=== PATIENT | male | born 1965 | race Caucasian/White ===

== ENCOUNTER 2018-03-12 12:29 | Emergency (ER) | payer BC, OTHER ==
[2018-03-12] MEDS ORDERED: NA CHLORIDE 0.9% 1,000 ML ONE (15:04)
[2018-03-12 15:11] LABS: Absolute Lymphocytes (CBC) 1.7 K/uL (0.7-4.9); Absolute Monocytes 0.7 K/uL (0.1-1.3); Absolute Neutrophil 4.2 K/uL (1.8-8.0); Basophils % 0.3 % (0-1.3); Eosinophils % 0.2 % (0-4.4); Hematocrit 43.6 % (39.6-49.0); Lymphocytes % 25.9 % (15.3-44.8); MPV 8.4 fL (7.6-11.3); Monocytes % 10.4 % (3.3-12.3)
--- NOTE | 2018-03-12 15:14 | RAD REPORT ---
EXAM DESCRIPTION: RAD - Chest Single View - 03/12/2018 3:08 pm CLINICAL HISTORY: ABDOMINAL DISTENTION Chest pain. COMPARISON: No comparisons FINDINGS: Portable technique limits examination quality. The lungs are grossly clear. The heart is normal in size. No displaced fractures. IMPRESSION: No acute intrathoracic process suspected.
[2018-03-12 15:27] LABS: Albumin 3.8 g/dL (3.4-5.0); Bilirubin Direct 0.2 mg/dL (0-0.2); Bilirubin Total 0.7 mg/dL (0.2-1.0); Potassium 4.1 mmol/L (3.5-5.1); Protein, Total 7.4 g/dL (6.4-8.2)
--- NOTE | 2018-03-12 16:55 | RAD REPORT ---
EXAM DESCRIPTION: CTAbdomen Pelvis W Contrast - 03/12/2018 4:39 pm CLINICAL HISTORY: Abdominal pain. ABD PAIN COMPARISON: No comparisons TECHNIQUE: Biphasic CT imaging of the abdomen and pelvis was performed with 100 ml non-ionic IV cont rast. All CT scans are performed using dose optimization technique as appropriate and may include automated exposure control or mA/KV adjustment according to patient size. FINDINGS: The lung bases are clear. The liver, spleen, pancreas, adrenal glands and right kidney are within normal limits. 3.2 x 3.0 cm s olid-appearing mass superior left kidney. No bowel obstruction, free air, free fluid or abscess. There are several thickened small bowel loops in the central anterior abdomen noted. No pneumatosis is seen. Sigmoid diverticulosis without diverti culitis. The appendix is normal. No evidence of significant lymphadenopathy. No suspicious bony findings. Small fat containing inguinal hernias. IMPRESSION: Multiple thickened small bowel loops are present in the anterior abdomen. This appears t o predominantly involve the more distal small bowel loops such as the ileum. Differential considerati ons would include infectious/inflammatory enteritis or inflammatory bowel disease. 3.2 x 3.0 cm solid-appearing lesion in the superior left kidney may represent a solid renal mass (suc h as renal cell carcinoma) or a complex cystic lesion. Recommend MR kidneys with gadolinium contrast for further assessment.
--- NOTE | 2018-03-12 17:36 | EDPHYS ---
Physician Documentation [facility] Name: Kimani Connolly Age: 52 yrs Sex: Male : 1965 Arrival Date: 03/12/2018 Time: 12:34 Bed 26 Private MD: ED Physician Dale Hull HPI: 03/12 14:01 This 52 yrs old Male presents to ER via Ambulatory with complaints of rh1 Abdominal Pain. 14:01 The patient presents with abdominal pain in the epigastric area, that is diffuse, rh1 abdominal distention that is diffuse. Onset: The symptoms/episode began/occurred 2 week(s) ago. The symptoms do not radiate. Associated signs and symptoms: Pertinent positives: constipation, diarrhea, nausea, Pertinent negatives: blood in stools, chest pain, dysuria, fever, headache, hematuria, palpitations, shortness of breath, testicular pain, vomiting. The symptoms are described as intermittent, sharp, waxing/waning. Modifying factors: The symptoms are alleviated by nothing, the symptoms are aggravated by food, greasy foods. Severity of pain: At its worst the pain was moderate in the emergency department the pain is unchanged. The patient has not experienced similar symptoms in the past. The patient has not recently seen a physician. He has had intermittent abdominal pain for the past 2 weeks. His pain was initially at epigastric area, and described as "mild indigestion" and over the past 2 weeks has moved into lower abdomen, and he feels bloated, crampy and has episodes of increased pain that is sharp. He has some increased symptoms with greasy foods, but other episodes of pain do not correlate with eating. He was initially constipated, and but has also had alternating episodes of diarrhea. He denies any urinary symptoms, no fevers. . Historical: - Allergies: 12:54 No Known Allergies; aa5 - Home Meds: 12:54 None [Active]; aa5 - PMHx: 12:54 None; aa5 - PSHx: 12:54 None; aa5 - Immunization history:: Flu vaccine is not up to date. - Social history:: Smoking status: Patient/guardian denies using tobacco, Patient uses alcohol, weekly. 2 - 3 beers, 1 - 2 mixed drinks on the weekends. - Ebola Screening: : No symptoms or risks identified at this time. ROS: 14:01 Constitutional: Negative for fever rh1 14:01 Constitutional: Positive for chills, x 1 episode last week. 14:01 ENT: Negative for difficulty swallowing, difficulty handling secretions. 14:01 Cardiovascular: Negative for chest pain, edema, palpitations. 14:01 Respiratory: Negative for cough, dyspnea on exertion, shortness of breath, wheezing. 14:01 Abdomen/GI: Positive for abdominal pain, nausea, diarrhea, constipation, Negative for black/tarry stool, rectal bleeding. 14:01 Back: Negative for decreased range of motion, pain at rest, pain with movement, radiated pain. 14:01 : Negative for urinary symptoms, urinary frequency, small amounts. 14:01 MS/extremity: Negative for decreased range of motion, pain, paresthesias, swelling, tenderness. 14:01 Skin: Negative for diaphoresis. 14:01 Neuro: Negative for altered mental status, dizziness, numbness, syncope, near syncope, tingling, weakness. Exam: 14:01 Constitutional: This is a well developed, well nourished patient who is awake, alert, rh1 and in no acute distress. Head/Face: Normocephalic, atraumatic. Neck: Trachea midline, and no cervical lymphadenopathy. Supple, full range of motion without nuchal rigidity. No Meningismus. Chest/axilla: Normal chest wall appearance and motion. Nontender with no deformity. No lesions are appreciated. Cardiovascular: Regular rate and rhythm with a normal S1 and S2. No gallops, murmurs, or rubs. No JVD. No pulse deficits. Respiratory: Lungs have equal breath sounds bilaterally, clear to auscultation. No rales, rhonchi or wheezes noted. No increased work of breathing. 14:01 Back: No spinal tenderness. No costovertebral tenderness. Full range of motion. 14:01 Skin: Warm, dry with normal turgor. Normal color with no rashes, no lesions, and no evidence of cellulitis. 14:01 MS/ Extremity: Pulses equal, no cyanosis. Neurovascular intact. Full, normal range of motion. 14:01 ENT: Mouth: is normal, no lip abnormalities, no mucosal abnormalities. 14:01 Abdomen/GI: Inspection: abdomen appears normal, bruising, is not seen, distension, is not seen, Bowel sounds: normal, in all quadrants, active, all quadrants, Palpation: soft, in all quadrants, mild abdominal tenderness, in the umbilical area, right upper quadrant, left upper quadrant and right lower quadrant, moderate abdominal tenderness, in the left lower quadrant, rebound tenderness, is not appreciated, involuntary guarding, is elicited in the left lower quadrant, Indicators: McBurney's point is not tender, Cabral's sign is negative, Rovsing's sign is negative, Liver: no appreciated palpable abnormalities. 14:01 Back: Exam negative for CVA tenderness, ecchymosis 14:01 Neuro: Orientation: is normal, to person, place \\T\\ time. Mentation: is normal, lucid, able to follow commands, Motor: is normal, moves all fours, strength is 5/5 in all extremities, Sensation: is normal, no obvious gross deficits, numbness, is not appreciated, tingling, is not appreciated, Gait: is steady, at a normal pace, without difficulty. Vital Signs: 12:54 BP 134 / 96; Pulse 68; Resp 18 S; Temp 97.8(TE); Pulse Ox 98% on R/A; Weight 87.09 kg aa5 (R); Height 6 ft. 0 in. (182.88 cm) (R); Pain 4/10; 15:10 BP 132 / 92; Pulse 75; Resp 18; Pulse Ox 97% on R/A; aj1 16:12 BP 136 / 88; Pulse 56; Resp 18; Pulse Ox 100% on R/A; aj1 12:54 Body Mass Index 26.04 (87.09 kg, 182.88 cm) aa5 MDM: 14:01 Patient medically screened. [facility] 17:00 Data reviewed: vital signs, nurses notes, lab test result(s), EKG, radiologic studies, rh1 CT scan, plain films, I have discussed the patient's presentation/case with the attending Emergency Department Physician; and as a result, I will discharge patient. Data interpreted: Pulse oximetry: on room air is 100 %. Interpretation: normal. Counseling: I had a detailed discussion with the patient and/or guardian regarding: the historical points, exam findings, and any diagnostic results supporting the discharge/admit diagnosis, lab results, radiology results, the need for outpatient follow up, a chemical process project engineer, a urologist, to return to the emergency department if symptoms worsen or persist or if there are any questions or concerns that arise at home. 17:32 ED course: Discussed renal mass, including differentials, and encouraged follow up with [facility] urology for further evaluation. 03/12 14:37 Order name: Basic Metabolic Panel; Complete Time: 15:[address] [facility] 03/12 14:37 Order name: CBC with Diff; Complete Time: 15:[address] [facility] 03/12 14:37 Order name: Creatinine for Radiology; Complete Time: 15:[address] [facility] 03/12 14:37 Order name: Hepatic Function; Complete Time: 15:[address] [facility] 03/12 14:37 Order name: Lipase; Complete Time: 15:[address] [facility] 03/12 16:05 Order name: Urine Dipstick--Ancillary (enter results) eb 03/12 14:37 Order name: IV Saline Lock; Complete Time: 15:[address] [facility] 03/12 14:37 Order name: Labs collected and sent; Complete Time: 15:[address] [facility] 03/12 14:37 Order name: Urine Dipstick-Ancillary (obtain specimen); Complete Time: 16:[address] [facility] 03/12 14:37 Order name: CT Abd/Pelvis - W/Contrast; Complete Time: 16:[address] [facility] 03/12 14:38 Order name: Chest Single View XRAY; Complete Time: 15:[address] [facility] 03/12 14:38 Order name: EKG - Nurse/Tech; Complete Time: 15:[address] [facility] Administered Medications: 15:02 Drug: NS 0.9% 1000 ml Route: IV; Rate: 1 bolus; Site: right antecubital; mg2 Disposition: 03/13 09:18 Co-signature as Attending Physician, Dale Hull MD I agree with the assessment and lorin plan of care. Disposition: 03/12/18 17:35 Discharged to Home. Impression: Unspecified abdominal pain, renal mass. - Condition is Stable. - Discharge Instructions: Abdominal Pain, Adult, Renal Mass. - Prescriptions for Flagyl 500 mg Oral Tablet - take 1 tablet by ORAL route every 12 hours for 7 days; 14 tablet. Cipro 500 mg Oral Tablet - take 1 tablet by ORAL route every 12 hours for 7 days; 14 tablet. Tramadol 50 mg Oral Tablet - take 1 tablet by ORAL route every 8 hours as needed; 12 tablet. - Medication Reconciliation Form, Thank You Letter, Antibiotic Education, Prescription Opioid Use form. - Follow up: Gavi, Yomi, MD; When: 2 - 3 days; Reason: Further diagnostic work-up, Recheck today's complaints, Continuance of care, Re-evaluation by your physician. Follow up: Mary Milligan MD; When: 2 - 3 days; Reason: Further diagnostic work-up, Recheck today's complaints, Continuance of care. Follow up: Emergency Department; When: As needed; Reason: Fever > 102 F, If symptoms return, Trouble breathing, Worsening of condition. - Problem is new. - Symptoms have improved. Signatures: Dispatcher [employer] EDMS Naty Lopez RN RN aj1 Dale Hull MD MD cha Calderon, Audri RN RN aa5 Janelle Jones NP NETTING INSPECTOR rh1 Clifford Mcgregor RN RN mg2 Corrections: (The following items were deleted from the chart) 03/12 17:46 17:35 03/12/2018 17:35 Discharged to Home. Impression: Unspecified abdominal pain; aj1 renal mass. Condition is Stable. Forms are Medication Reconciliation Form, Thank You Letter, Antibiotic Education, Prescription Opioid Use. Follow up: Yomi Gatica; When: 2 - 3 days; Reason: Further diagnostic work-up, Recheck today's complaints, Continuance of care, Re-evaluation by your physician. Follow up: Mary Milligan; When: 2 - 3 days; Reason: Further diagnostic work-up, Recheck today's complaints, Continuance of care. Follow up: Emergency Department; When: As needed; Reason: Fever > 102 F, If symptoms return, Trouble breathing, Worsening of condition. Problem is new. Symptoms have improved. rh1
--- NOTE | 2018-03-12 17:36 | ER ---
Nurse's Notes [facility] Name: Kimani Connolly Age: 52 yrs Sex: Male : 1965 Arrival Date: 03/12/2018 Time: 12:34 Bed 26 Private MD: Diagnosis: Unspecified abdominal pain;renal mass Presentation: 03/12 12:52 Presenting complaint: Patient states: epigastric pain that began 2 weeks ago. Pt states aa5 "now the pain is constant and it's my whole abdomen now". Pt reports nausea, denies vomiting. Pt states "I had a little bit of diarrhea at first but now I am a little bit constipated". Transition of care: patient was not received from another setting of care. Onset of symptoms was February 2018. Risk Assessment: Do you want to hurt yourself or someone else? Patient reports no desire to harm self or others. Initial Sepsis Screen: Does the patient meet any 2 criteria? No. Patient's initial sepsis screen is negative. Does the patient have a suspected source of infection? No. Patient's initial sepsis screen is negative. Care prior to arrival: None. 12:52 Method Of Arrival: Ambulatory aa5 12:52 Acuity: TITUS 3 aa5 Historical: - Allergies: 12:54 No Known Allergies; aa5 - Home Meds: 12:54 None [Active]; aa5 - PMHx: 12:54 None; aa5 - PSHx: 12:54 None; aa5 - Immunization history:: Flu vaccine is not up to date. - Social history:: Smoking status: Patient/guardian denies using tobacco, Patient uses alcohol, weekly. 2 - 3 beers, 1 - 2 mixed drinks on the weekends. - Ebola Screening: : No symptoms or risks identified at this time. Screenin:00 Abuse screen: Denies threats or abuse. Denies injuries from another. Nutritional aj1 screening: No deficits noted. Tuberculosis screening: No symptoms or risk factors identified. 17:45 Fall Risk None identified. aj1 Assessment: 14:00 General: Appears in no apparent distress. uncomfortable, Behavior is calm, cooperative, aj1 appropriate for age. Pain: Complains of pain in abdomen diffusely Pain does not radiate. Pain currently is 4 out of 10 on a pain scale. Neuro: Level of Consciousness is awake, alert, obeys commands. Cardiovascular: Patient's skin is warm and dry. Respiratory: Airway is patent Respiratory effort is even, unlabored, Respiratory pattern is regular, symmetrical. GI: Abdomen is flat, non-distended, Bowel sounds present X 4 quads. Abd is soft X 4 quads Abdomen is tender to palpation in left upper quadrant Reports nausea, Patient currently denies diarrhea, vomiting. : No signs and/or symptoms were reported regarding the genitourinary system. EENT: No signs and/or symptoms were reported regarding the EENT system. Derm: No signs and/or symptoms reported regarding the dermatologic system. Skin is pink, warm \\T\\ dry. normal. Musculoskeletal: No signs and/or symptoms reported regarding the musculoskeletal system. Circulation, motion, and sensation intact. 15:00 Reassessment: Patient appears in no apparent distress at this time. No changes from [facility] previously documented assessment. Patient and/or family updated on plan of care and expected duration. Pain level reassessed. Patient is alert, oriented x 3, equal unlabored respirations, skin warm/dry/pink. 16:00 Reassessment: Patient appears in no apparent distress at this time. No changes from aj1 previously documented assessment. Patient and/or family updated on plan of care and expected duration. Pain level reassessed. Patient is alert, oriented x 3, equal unlabored respirations, skin warm/dry/pink. 17:08 Reassessment: Patient appears in no apparent distress at this time. No changes from [facility] previously documented assessment. Patient and/or family updated on plan of care and expected duration. Pain level reassessed. Patient is alert, oriented x 3, equal unlabored respirations, skin warm/dry/pink. Vital Signs: 12:54 BP 134 / 96; Pulse 68; Resp 18 S; Temp 97.8(TE); Pulse Ox 98% on R/A; Weight 87.09 kg aa5 (R); Height 6 ft. 0 in. (182.88 cm) (R); Pain 4/10; 15:10 BP 132 / 92; Pulse 75; Resp 18; Pulse Ox 97% on R/A; aj1 16:12 BP 136 / 88; Pulse 56; Resp 18; Pulse Ox 100% on R/A; aj1 12:54 Body Mass Index 26.04 (87.09 kg, 182.88 cm) aa5 ED Course: 12:34 Patient arrived in ED. mr 12:52 Arm band placed on. aa5 12:53 Triage completed. aa5 13:55 Naty Lopez, RICKI is Primary Nurse. aj1 13:55 Janelle Jones NP is PHCP. rh1 13:55 Dale Hull MD is Attending Physician. rh1 14:00 Patient has correct armband on for positive identification. Bed in low position. Call aj1 light in reach. Side rails up X 1. 15:03 No provider procedures requiring assistance completed. Inserted saline lock: 20 gauge mg2 in right antecubital area, using aseptic technique. Blood collected. 15:08 Chest Single View XRAY In Process Unspecified. EDMS 16:40 CT Abd/Pelvis - W/Contrast In Process Unspecified. EDMS 16:40 CT completed. Patient tolerated procedure well. Patient moved back from CT. 17:33 Yomi Gatica MD is Referral Physician. rh1 17:34 Mary Milligan MD is Referral Physician. rh1 17:45 IV discontinued, intact, bleeding controlled, No redness/swelling at site. Pressure aj dressing applied. Administered Medications: 15:02 Drug: NS 0.9% 1000 ml Route: IV; Rate: 1 bolus; Site: right antecubital; mg2 Outcome: 17:35 Discharge ordered by . 1 17:45 Discharged to home ambulatory. aj1 17:45 Condition: good 17:45 Discharge instructions given to patient, Instructed on discharge instructions, follow up and referral plans. medication usage, Demonstrated understanding of instructions, follow-up care, medications, Prescriptions given X 3. 17:46 Patient left the ED. aj Signatures: Dispatcher [employer] EDMO Naty Lopez, RN RN [facility] Christina Aguilar Betty Lavonne Rodriguez RN RN 5 Janelle Jones NP CUSTOMER RELATIONS SPECIALIST [facility] Clifford Mcgregor RN RN mg2
[2018-03-12 20:35] LABS: Urine Blood TRACE (NEG); Urine Glucose NEGATIVE (NEG); Urine Protein NEGATIVE (NEG); Urine Specific Gravity 1.025 (1.005-1.030)
--- NOTE | 2018-03-13 09:26 | EKG ---
Test Date: 2018-03-12 Test Time: 15:09:30 Buckle Gluer: NEY MEASUREMENT RESULTS: Intervals: Rate: 60 KS: 168 QRSD: 88 QT: 430 QTc: 430 [place]: P: 56 KS: 168 QRS: -21 T: 46 INTERPRETIVE STATEMENTS: Normal sinus rhythm Septal infarct, age undetermined Abnormal ECG No previous ECG available for comparison Electronically Signed On 03-13-18 09:25:06 MANAGER GAMES by Grey Sotelo
== END 2018-03-12 17:46 | disposition home or self-care (01) ==
LOC: ER 12:29
DX: N28.9 Disorder of kidney and ureter, unspecified (principal)
CPT/HCPCS: 36415; 71045; 74177; 80048; 80076; 81003; 83690; 85025; 93005; 99284; J7030; Q9967

== ENCOUNTER 2020-01-27 11:39 | Emergency (ER) | payer BC ==
--- OUTSIDE RECORDS SUMMARY | 2020-01-27 11:40 | XMS REPORT | Clinical Summary ---
:1965 Author Organization [facility] Address [address] [place] [address] Care Team Providers Name Role Phone Tripp Austin MD Primary Care Provider Allergies No Known Active Allergies Medications No known medications Active Problems Problem Noted Date Left renal mass 05/16/2018 Surgical History Surgery Date Site/Laterality Comments WISDOM TOOTH EXTRACTION 02/07/2002 - 02/06/2003 NEPHRECTOMY, PARTIAL, 05/16/2018 Left Procedure: ROBOTIC ASSISTED LAPAROSCOPIC, LAPAROSCOPIC LEF T PARTIAL ROBOT-ASSISTED NEPHRECTOMY WITH INTRAOPERATIVE U LTRASOUND; Surgeon: Madonna Bunch MD; Location: [facility]; Service: Urolog y; Laterality: Left ; Medical devices from this surgery are in t he Implants section. Medical History Medical History Date Comments Kidney stone 1998 Kidney mass left- having surgery / no chemo/no radiation Anesthesia nhap/nfhap Exercises 3 to 4 times per week strength training, running, walking- 60 min- no sob/no chest pain Dental crowns present Wears glasses Stomach pain went to ER in [facility] 03/2018- infection between sm all and large intestines- Rx antib iotics and was discharged, from CT scan, kidney was discovered Overweight (BMI 25.0-29.9) Family History Medical History Relation Name Comments Diabetes Brother Diabetes Father Heart attack Father Stroke Father No Known Problems Mother Relation Name Status Comments Brother Alive Father Mother Alive anxiety Social History Tobacco Use Types Packs/Day Years Used Date Never Smoker Smokeless Tobacco: Never Used Alcohol Use Drinks/Week oz/Week Comments Yes social Alcohol Habits Answer Date Recorded How often do you have a drink containing alcohol? Never 03/31/2018 How many drinks containing alcohol do you have on a typical Not asked day when you are drinking? How often do you have six or more drinks on one occasion? No t asked Sex Assigned at Date Recorded Not on file Last Filed Vital Signs Not on file Plan of Treatment Health Maintenance Due Date Last Done Comments COVID-19 VACCINE (#1) 1982 COLONOSCOPY SCREENING 2016 SHINGLES VACCINES (#1) 2016 INFLUENZA VACCINE 09/08/2019 Implants Implanted Type Area Manufacturing Technician Device Shelf Model / Identifier Expiration Serial / Date Lot Clip Ligtng Hem-O-Camilo Endoscpc Aplr Ply Lg - [id number] Surgic al N/A: N/A WECK CLOSURE [id number] / Implanted: 05/16/2018 at [facility] (Quantity not on file) Implan ts; SYSTEMS / Expanders; Extenders; Surgical Wires Kit Selnt Fibrin Humn Hmsts Surgy 5ml Evicel - [id number] Surgic al N/A: N/A ETHICON US-EH 02/06/2019 [id number] / Implanted: 05/16/2018 at [facility] (Quantity not on file) Implants; / Expanders; [id number] Extenders; Surgical Wires Clip Ligtng Hem-O-Camilo Endoscpc Aplr [facility] - [id number] Surgic al N/A: N/A WECK CLOSURE [id number] / Implanted: 05/17/2018 at [facility] (Quantity not on file) Implan ts; SYSTEMS / Expanders; Extenders; Surgical Wires Results Not on fileafter 01/26/2019 (Work) Advance Directives For more information, please contact: [phone] Type Date Recorded Patient Traffic Control Operator Explanati on Advance Directives, Living Will and Medical Power of Medicinal Chemist
--- NOTE | 2020-01-27 12:36 | RAD REPORT ---
EXAM DESCRIPTION: RAD - Elbow Right 3 View - 01/27/2020 12:30 pm CLINICAL HISTORY: PAIN Fall, pain COMPARISON: No comparisons FINDINGS: Small olecranon spur is present. No acute fracture or dislocation evident.
--- NOTE | 2020-01-27 12:37 | RAD REPORT ---
EXAM DESCRIPTION: RAD - Wrist Right 3 View - 01/27/2020 12:30 pm CLINICAL HISTORY: PAIN Pain COMPARISON: No comparisons FINDINGS: Small fracture fragment is seen at the base of the first metacarpal with adjacent soft tis dudley swelling. No dislocation evident.
--- NOTE | 2020-01-27 12:38 | RAD REPORT ---
EXAM DESCRIPTION: RAD - Hand Right 3 View - 01/27/2020 12:30 pm CLINICAL HISTORY: PAIN Trauma, pain COMPARISON: No comparisons FINDINGS: A fracture fragment is seen along the base of first metacarpal with adjacent soft tissue s welling. No dislocation.
--- NOTE | 2020-01-27 12:49 | ER ---
Nurse's Notes [facility] Name: Kimani Mahmoodvicky Age: 54 yrs Sex: Male : 1965 Arrival Date: 01/27/2020 Time: 11:41 Bed 13 Private MD: Diagnosis: 1st Metacarpal Fracture Presentation: 01/26 11:43 Chief complaint: Patient states: fell off of step ladder about 5 feet onto concrete sv today. c/o buttock, right elbow, right hand/wrist. Hit his head as well but no LOC. Care prior to arrival: None. Mechanism of Injury: Fall from ladder. Trauma event details: Injury occurred in the [facility], Injury occurred: at home. Injury occurred: January 27, 2020. 11:43 Acuity: TITUS 3 sv 11:43 Method Of Arrival: Ambulatory sv 11:44 Coronavirus screen: Client denies travel out of the [place] in the last 14 days. At this sv time, the client does not indicate any symptoms associated with coronavirus-19. Ebola Screen: No symptoms or risks identified at this time. Risk Assessment: Do you want to hurt yourself or someone else? Patient reports no desire to harm self or others. Onset of symptoms was January 27, 2020. 12:30 Initial Sepsis Screen: Does the patient meet any 2 criteria? No. Patient's initial vg1 sepsis screen is negative. Does the patient have a suspected source of infection? No. Patient's initial sepsis screen is negative. Trauma Activation: Not Applicable Physician: ED Physician; Name: ; Notified At: ; Arrived At: Physician: General Surgeon; Name: ; Notified At: ; Arrived At: Physician: Radiology; Name: ; Notified At: ; Arrived At: Physician: Respiratory; Name: ; Notified At: ; Arrived At: Physician: Lab; Name: ; Notified At: ; Arrived At: Historical: - Allergies: 11:45 No Known Allergies; sv - PMHx: 11:45 left kidney cancer; sv - PSHx: 11:45 None; left kidney surgery; sv - Social history:: Smoking status: Patient denies any tobacco usage or history of. Screenin:30 Abuse screen: Denies threats or abuse. Nutritional screening: No deficits noted. vg1 Tuberculosis screening: No symptoms or risk factors identified. Fall Risk No fall in past 12 months (0 pts). No secondary diagnosis (0 pts). No IV (0 pts). Ambulatory Aid- None/Bed Rest/Nurse Assist (0 pts). Gait- Normal/Bed Rest/Wheelchair (0 pts) Mental Status- Oriented to own ability (0 pts). Total Gaspar Fall Scale indicates No Risk (0-24 pts). Assessment: 11:49 Reassessment: VO received from Dr Franco for xrays and CT. sv 12:21 Reassessment: Xray at bedside. vg1 12:30 General: Appears in no apparent distress. comfortable, Behavior is calm, cooperative. vg1 Pain: Complains of pain in lower back, right thumb, right elbow Pain currently is 6 out of 10 on a pain scale. Quality of pain is described as aching, tingling, Pain began today. Neuro: Level of Consciousness is awake, alert, obeys commands, Oriented to person, place, time, situation, Engineer/Conductor are equal bilaterally Speech is normal. Cardiovascular: Pulses are palpable in right radial artery and left radial artery. Cardiovascular: Patient's skin is warm and dry. Respiratory: Airway is patent Respiratory effort is even, unlabored, Respiratory pattern is regular, symmetrical. GI: No signs and/or symptoms were reported involving the gastrointestinal system. : No signs and/or symptoms were reported regarding the genitourinary system. EENT: No signs and/or symptoms were reported regarding the EENT system. Derm: Skin is pink, warm \T\ dry. Musculoskeletal: Range of motion: intact in all extremities. 12:57 Reassessment: Received v/o from Cj to give patient 800mg of Ibuprofen PO x1. vg1 Vital Signs: 11:45 BP 150 / 94; Pulse 83; Resp 16; Temp 98.2; Pulse Ox 100% ; Weight 86.18 kg; Height 6 sv ft. 0 in. (182.88 cm); Pain 5/10; 12:52 BP 146 / 91; Pulse 64; Resp 14; Pulse Ox 100% on R/A; vg1 11:45 Body Mass Index 25.77 (86.18 kg, 182.88 cm) sv [place] Coma Score: 11:45 Eye Response: spontaneous(4). Verbal Response: oriented(5). Motor Response: obeys sv commands(6). Total: 15. Trauma Score (Adult): 11:45 Eye Response: spontaneous(1); Verbal Response: oriented(1); Motor Response: obeys sv commands(2); Systolic BP: > 89 mm Hg(4); Respiratory Rate: 10 to 29 per min(4); [place] Score: 15; Trauma Score: 12 ED Course: 11:41 Patient arrived in ED. rg4 11:43 Arm band placed on. sv 11:44 Triage completed. sv 12:04 Cj Hinson PA is PHCP. jmm 12:04 Tato Franco MD is Attending Physician. jmm 12:16 Sandra Cardenas, RICKI is Primary Nurse. vg1 12:30 Wrist Right 3 View XRAY In Process Unspecified. EDMS 12:30 Hand Right 3 View XRAY In Process Unspecified. EDMS 12:30 Elbow Right 3 View XRAY In Process Unspecified. EDMS 12:30 Patient has correct armband on for positive identification. Bed in low position. Call vg1 light in reach. Adult w/ patient. 12:[address] via wheelchair. vg1 12:35 Patient maintains SpO2 saturation greater than 95% on room air. vg1 12:45 CT Head C Spine In Process Unspecified. EDMS 12:47 Vinay Middleton MD is Referral Physician. jmm 12:[address]. vg1 13:13 No provider procedures requiring assistance completed. Patient did not have IV access vg1 during this emergency room visit. Administered Medications: 13:05 Drug: Ibuprofen 800 mg Route: PO; vg1 13:12 Follow up: Response: Medication administered at discharge. vg1 Intake: 11:45 PO: 0ml; Total: 0ml. sv Output: 11:45 Urine: 0ml; Total: 0ml. sv Outcome: 12:48 Discharge ordered by MD. jmm 13:10 Discharged to home ambulatory. vg1 13:10 Condition: stable 13:10 Discharge instructions given to patient, Instructed on discharge instructions, follow up and referral plans. Demonstrated understanding of instructions, follow-up care. 13:14 Patient left the ED. vg1 Signatures: Dispatcher [employer] Nayeli De Jesus RN RN Cj Hinson PA PA jmm Garcia, Rubi rg4 Sandra Cardenas RN RN vg1 Corrections: (The following items were deleted from the chart) 11:47 11:45 Pulse 83bpm; Resp 16bpm; Pulse Ox 100%; Temp 98.2F; 86.18 kg; Height 6 ft. 0 in.; sv BMI: 25.7; sv 12:43 12:38 General: Appears in no apparent distress. comfortable, Behavior is calm, vg1 cooperative, [facility] : 12:38 Pain: Complains of pain in lower back, right thumb, right elbow Pain currently is vg1 6 out of 10 on a pain scale. Quality of pain is described as aching, tingling, Pain began today vg1 12:38 Neuro: Level of Consciousness is awake, alert, obeys commands, Oriented to vg1 person, place, time, situation, Engineer/Conductor are equal bilaterally Speech is normal, [facility] : 12:38 Cardiovascular: Patient's skin is warm and dry. vg1 1 : 12:38 Respiratory: Airway is patent Respiratory effort is even, unlabored, Respiratory vg1 pattern is regular, symmetrical, 1 : 12:38 GI: No signs and/or symptoms were reported involving the gastrointestinal system. vg1 1 : 12:38 : No signs and/or symptoms were reported regarding the genitourinary system. vg1v :43 12:38 EENT: No signs and/or symptoms were reported regarding the EENT system. vg1 1 12:43 12:38 Derm: Skin is pink, warm \T\ dry. vg1 vg1 :43 12:38 Cardiovascular: Pulses are palpable in right radial artery and left radial artery vg1 1 :43 12:38 Musculoskeletal: Range of motion: intact in all extremities, vg1 vg1
--- NOTE | 2020-01-27 12:49 | EDPHYS ---
Physician Documentation [facility] Name: Kimani Cathleen Age: 54 yrs Sex: Male : 1965 Arrival Date: 01/27/2020 Time: 11:41 Bed 13 Private MD: ED Physician Tato Franco HPI: 01/26 12:39 This 54 yrs old Male presents to ER via Ambulatory with complaints of Fall jmm Injury. 12:39 Details of fall: The patient fell from a height, from a ladder, approximately 6 feet. jmm Onset: The symptoms/episode began/occurred acutely, just prior to arrival. Associated injuries: The patient sustained right elbow, right hand. This is a 54 year old male with a history of left kidney cancer that presents ot the ED with complaints low back pain, right elbow and right hand pain after falling off a ladder. States he did hit his head. Patient is not taking anticoagulants. . Historical: - Allergies: 11:45 No Known Allergies; sv - PMHx: 11:45 left kidney cancer; sv - PSHx: 11:45 None; left kidney surgery; sv - Social history:: Smoking status: Patient denies any tobacco usage or history of. ROS: 12:39 Constitutional: Negative for fever, chills, and weight loss, Eyes: Negative for injury, jmm pain, redness, and discharge, Cardiovascular: Negative for chest pain, palpitations, and edema, Respiratory: Negative for shortness of breath, cough, wheezing, and pleuritic chest pain. 12:39 Back: Positive for pain with movement. 12:39 MS/extremity: Positive for injury or acute deformity. 12:39 All other systems are negative. Exam: 12:39 Constitutional: This is a well developed, well nourished patient who is awake, alert, jmm and in no acute distress. Head/Face: atraumatic. Eyes: EOMI, no conjunctival erythema appreciated ENT: Moist Mucus Membranes Neck: Trachea midline, Supple Chest/axilla: Normal chest wall appearance and motion. Cardiovascular: Regular rate and rhythm. No edema appreciated Respiratory: Normal respirations, no respiratory distress appreciated Abdomen/GI: Non distended, soft 12:39 Back: vertebral tenderness, is not appreciated. 12:39 Musculoskeletal/extremity: FROM noted to the right elbow, not ttp, compartments are soft, NVI, pain on palpation of the right 1st metacarpal, < 2 sec dist cap refill, NVI. 12:39 Skin: Appearance: Color: normal in color. 12:39 Neuro: Orientation: is normal, Mentation: is normal, Memory: is normal. 12:39 Psych: Behavior/mood is pleasant, cooperative. Vital Signs: 11:45 BP 150 / 94; Pulse 83; Resp 16; Temp 98.2; Pulse Ox 100% ; Weight 86.18 kg; Height 6 sv ft. 0 in. (182.88 cm); Pain 5/10; 12:52 BP 146 / 91; Pulse 64; Resp 14; Pulse Ox 100% on R/A; vg1 11:45 Body Mass Index 25.77 (86.18 kg, 182.88 cm) sv [place] Coma Score: 11:45 Eye Response: spontaneous(4). Verbal Response: oriented(5). Motor Response: obeys sv commands(6). Total: 15. Trauma Score (Adult): 11:45 Eye Response: spontaneous(1); Verbal Response: oriented(1); Motor Response: obeys sv commands(2); Systolic BP: > 89 mm Hg(4); Respiratory Rate: 10 to 29 per min(4); [place] Score: 15; Trauma Score: 12 MDM: 12:33 Patient medically screened. [facility] 12:45 Data reviewed: vital signs, nurses notes. Counseling: I had a detailed discussion with janak the patient and/or guardian regarding: the historical points, exam findings, and any diagnostic results supporting the discharge/admit diagnosis, radiology results, the need for outpatient follow up, to return to the emergency department if symptoms worsen or persist or if there are any questions or concerns that arise at home. ED course: Patient is alert and non toxic in appearance in the ED. Advised to follow up with hand surgery. Patient understood and agrees with the plan of care. . 01/26 11:50 Order name: Wrist Right 3 View XRAY; Complete Time: 12:38 sv 01/26 11:50 Order name: Hand Right 3 View XRAY; Complete Time: 12:39 sv 01/26 11:50 Order name: Elbow Right 3 View XRAY; Complete Time: 12:37 sv 01/26 11:50 Order name: CT Head C Spine; Complete Time: 12:53 sv 01/26 12:39 Order name: Thumb Spica Splint; Complete Time: 13:12 [facility] Administered Medications: 13:05 Drug: Ibuprofen 800 mg Route: PO; vg1 13:12 Follow up: Response: Medication administered at discharge. vg1 Disposition: 14:36 Co-signature as Attending Physician, Tato Franco MD. rn Disposition: 01/27/20 12:48 Discharged to Home. Impression: 1st Metacarpal Fracture. - Condition is Stable. - Discharge Instructions: Metacarpal Fracture. - Medication Reconciliation Form, Thank You Letter, Antibiotic Education, Prescription Opioid Use form. - Follow up: Vinay Middleton MD; When: 2 - 3 days; Reason: Recheck today's complaints, Continuance of care, Re-evaluation by your physician. Signatures: Dispatcher [employer] Nayeli De Jesus, RN RN Cj Hinson PA PA jmm Nieto, Roman, MD MD rn Garcia, Victoria, RN RN vg Corrections: (The following items were deleted from the chart) 13:14 12:48 01/27/2020 12:48 Discharged to Home. Impression: 1st Metacarpal Fracture. vg1 Condition is Stable. Forms are Medication Reconciliation Form, Thank You Letter, Antibiotic Education, Prescription Opioid Use. Follow up: Vinay Middleton; When: 2 - 3 days; Reason: Recheck today's complaints, Continuance of care, Re-evaluation by your physician. doug
--- NOTE | 2020-01-27 12:51 | RAD REPORT ---
EXAM DESCRIPTION: CT - [id number] - 01/27/2020 12:45 pm CLINICAL HISTORY: Trauma, head and neck injury. fall COMPARISON: No comparisons TECHNIQUE: Axial 5 mm thick images of the head were obtained. Axial 2 mm thick images of the cervical spine were obtained with sagittal and coronal reconstruction images generated and reviewed. All CT scans are performed using dose optimization technique as appropriate and may include automated exposure control or mA/KV adjustment according to patient size. FINDINGS: CT HEAD WITHOUT CONTRAST: No acute hemorrhage, hydrocephalus or extra-axial collection is identified.No areas of brain edema or midline shift. The paranasal sinuses and mastoids are clear.The calvarium is intact. CT CERVICAL SPINE WITHOUT CONTRAST: No fracture or subluxation.Mild cervical degenerative changes.No prevertebral soft tissues swelling i s identified. IMPRESSION: No acute intracranial or cervical spine findings.
[2020-01-27] MEDS ORDERED: IBUPROFEN 400 MG TAB ONE (13:12)
[2020-01-29 10:03] VITALS: BP 150/94; TEMP 98.2; O2SAT 100
== END 2020-01-27 13:14 | disposition home or self-care (01) ==
LOC: ER 11:39
DX: S62.231A Other displaced fracture of base of first metacarpal bone, right hand, initial encounter for closed fracture (principal); W11.XXXA Fall on and from ladder, initial encounter; Y93.9 Activity, unspecified; Y92.9 Unspecified place or not applicable; Z85.528 Personal history of other malignant neoplasm of kidney
CPT/HCPCS: 70450; 72125; 73130; 73080; 73110; 99284; Q9967